=== PATIENT | female | born 1950 | race Caucasian/White ===

== ENCOUNTER 2017-05-18 13:35 | Outpatient (CLI) | payer OTHER ==
[2017-05-18 14:08] LABS: BODY FLUID COLOR YELLOW (LT YELLOW)
[2017-05-18 14:09] LABS: BODY FLUID TOTAL VOLUME 4 mL
[2017-05-18 14:10] LABS: BF APPEARANCE UNSPUN HAZY (CLEAR)
[2017-05-18 14:11] LABS: APPEARANCE,SPUN,BODY FLUID CLEAR (CLEAR)
[2017-05-18 14:22] LABS: BODY FLUID SOURCE/ TYPE SYNOVIAL; SOURCE/TYPE ,BODY FLUID SYNOVIAL
[2017-05-18 15:52] LABS: BODY FLUID CRYSTALS NO CRYSTALS SEEN (None Seen)
[2017-05-18 16:06] LABS: RBC, BODY FLUID 603 /uL; WBC, BODY FLUID 1237 /uL
[2017-05-18 16:49] LABS: LYMPHOCYTES, BODY FLUID 12 %; MONOCYTES,BODY FLUID 7 %; NEUTROPHIL, BODY FLUID 81 %
== END 2017-05-18 19:30 | disposition home or self-care (01) ==
LOC: SUS 13:35
PROVIDERS: ATTEND Orthopaedic Surgery
DX: R60.0 Localized edema (principal)
CPT/HCPCS: 36415; 82947-TC; 84157-TC; 87070-TC; 89051-TC; 89060-TC; 93971